=== PATIENT | male | born 1995 | race Caucasian/White ===

== ENCOUNTER 2022-05-25 19:43 | Emergency (ER) | payer BC ==
[~2022-05-25] VITALS: Ht 167.6 cm; Wt 54.4 kg
[2022-05-25 20:05] VITALS: BP 135/77
--- NOTE | 2022-05-25 20:12 | NUR ---
TO LOBBY FOLLOWING TRIAGE
--- NOTE | 2022-05-25 21:18 | NUR ---
PT CALLED FOR BLOOD DRAW IN LOBBY AND OUTSIDE WITH NO ANSWER.
--- NOTE | 2022-05-25 22:00 | NUR ---
PT CALLED IN LOBBY AND OUTSIDE WITH NO ANSWER. PATIENT LEFT WITHOUT BEING SEEN BY DR. ALVAREZ. NO FURTHER CARE PROVIDED FOR PATIENT.
== END 2022-05-25 22:00 | disposition left against medical advice (07) ==
LOC: MED 19:43
DX: R10.9 Unspecified abdominal pain (principal); R42 Dizziness and giddiness; R25.1 Tremor, unspecified; R11.0 Nausea; Z53.21 Procedure and treatment not carried out due to patient leaving prior to being seen by health care provider